=== PATIENT | male | born 1975 | race Caucasian/White ===

== ENCOUNTER 2016-12-15 05:03 | Emergency (ER) | payer MEDICAID ==
--- NOTE | 2016-12-25 07:17 | ER ---
ADMIT: 12/15/2016 RM/LOC: ER [facility] MR#: [id number] [address] [place] [address] Emergency Room Report SEX: M AGE: 41 : 1975 DATE: 12/15/2016 ADDENDUM: See T-sheet for complete H and P. HISTORY OF PRESENT ILLNESS: A 41-year-old male comes in with complaints of pain and some bleeding from his right ear. States he woke up around 4:00 in the morning, felt like he had some pain in his ear, put a Q-tip in the right ear and noticed there was some blood present, so he came in to be evaluated. States when he went to bed, he was not having any pain or pressure in that ear. He has not had any recent trauma to that he is aware of. He has not had any cold symptoms. He has never had any surgeries on that ear. He denies any headache. He does not have any pain, complains of problems over his mastoid. He is not having any fevers or chills. No neck pain or stiffness. PHYSICAL EXAMINATION: Shows he has a small amount of blood on his external canal, but the canal itself does not appear edematous. It is not swollen. No signs of infection and the tympanic membrane itself looks normal. He has no tenderness with manipulation of his movement of his auricle or his external ear structure. He has no tenderness of his mastoid. HOSPITAL COURSE: The patient was given a shot of Toradol 30 mg IM and one Rosie. His pain was significantly improved and on re-examination, there was no change in the blood in his ear. There is no continued bleeding. I am unsure what caused the patient's pain in the first place in the ear, but I think he likely caused some trauma when he put the Q-tip in his ear caused the bleeding. He is not started on antibiotic at this time. There are no signs of infection. He is discharged home to use Tylenol and Motrin for pain and to follow up with Dr. Wade if his symptoms are not improving or return to the ER for any other concerning symptoms. DIAGNOSIS: External ear canal trauma. Wili George MD/ [place] JOB #: [id number] CC: Wili George MD, Attending Physician
== END 2016-12-15 06:17 | disposition home or self-care (01) ==
LOC: ER 05:03
DX: S09.91XA Unspecified injury of ear, initial encounter (principal); F17.210 Nicotine dependence, cigarettes, uncomplicated; X58.XXXA Exposure to other specified factors, initial encounter